=== PATIENT | female | born 1985 | race Caucasian/White ===

== ENCOUNTER 2017-04-22 22:42 | Emergency (ER) | payer OTHER ==
[~2017-04-22] VITALS: Ht 170.2 cm; Wt 54.4 kg
[~2017-04-22 22:42] MED LIST: MAGNESIUM CITR100 MG PO; TRINATE TABLET1 TAB PO; WOMEN'S DAILY1 EAC1 PO; [UNRECOGNIZED DRUG - OTHER] PO
[2017-04-23 01:25] VITALS: BP 105/69
== END 2017-04-23 01:36 | disposition home or self-care (01) ==
LOC: ER 22:42
DX: R25.2 Cramp and spasm (principal)